=== PATIENT | female | born 1970 | race Caucasian/White ===

== ENCOUNTER → 2016-09-25 | Outpatient (CLI) | payer OTHER | LOC: FIMAGING 07:28 | PROVIDERS: ATTEND Obstetrics & Gynecology | DX: Z12.31 Encounter for screening mammogram for malignant neoplasm of breast (principal) | CPT/HCPCS: G0202 ==

== ENCOUNTER 2017-03-30 11:20 | Emergency (ER) | payer OTHER ==
[2017-03-30 11:38] VITALS: PULSE 61; RESP 16
--- NOTE | 2017-03-30 11:55 | EDPHY ---
H & P Stated Complaint: L thumb injury on Thursday Source: Patient Exam Limitations: No limitations - Personal History LMP (Females 10-55): 1-7 Days Ago Current Tetanus Diphtheria and Acellular Pertussis (TDAP): Yes - Medical/Surgical History Other PMH: healthy - Social History Smoking Status: Never smoked Time Seen by Provider: 03/30/17 11:54 HPI/ROS: HPI: This is a 46-year-old female who presents with Chief Complaint: L thumb injury on Thursday Location: Left thumb Quality: Injury Duration: Occurred Thursday Signs and Symptoms: No bleeding, no radiation, no numbness, no weakness, no tingling, no incontinence, no decreased range of motion, + swelling, + pain Timing: Sudden, worse with use Severity: Moderate Context: Patient is right-hand dominant and 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 She was skiing on Thursday, which he lost her balance and fell. She is not sure she had her pulling hand are not but when she hit the ground she felt immediate pain in her left thumb. She reports that she is almost at the end of her runs for the day so she went home. She reports that the pain has mildly been relieved but it is still there and worsened with flexion. She denies any paresthesias/weakness/skin color changes. Modifying Factors: None Comment: ROS: see HPI Constitutional: No fever, no chills, no weight loss Eyes: No blurred vision Respiratory: No shortness of breath, no cough Cardiovascular: No chest pain Gastrointestinal: No nausea, no vomiting no diarrhea Genitourinary: No dysuria Extremities: No myalgias Neurologic: No weakness, no numbness Skin: No rashes Hematologic: No bruising, no bleeding MEDICAL/SURGICAL/SOCIAL HISTORY: Medical history: Generally healthy. Does not take any regular medications. Surgical history: Denies Social history: Employed. CONSTITUTIONAL: Pleasant adult female, awake and alert, no obvious distress HEENT: Atraumatic and normocephalic, PERRL, EOMI. Tympanic membranes clear. Oropharynx clear, no exudate and moist pink mucosa. Airway patent. No lymphadenopathy. No meningismus. Cardiovascular: Normal S1/S2, regular rate, regular rhythm, without murmur rub or gallop. PULMONARY/CHEST: Symmetrical and nontender. Clear to auscultation bilaterally. Good air movement. No accessory muscle usage. ABDOMEN: Soft, nondistended, nontender, no rebound, no guarding, no peritoneal signs, no masses or organomegaly. No CVAT. 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 Patient is able to perform adduction and opposition. Mild tenderness noted over the ulnar border of the thumb MCP joint. Mild weakness of pinching noted. No scaphoid tenderness. Flexion and extension intact at the no deformities, no clubbing, no cyanosis or edema. NEUROLOGICAL: no focal neuro deficits. GCS 15. SKIN: Warm and dry, no erythema. no rash. Good capillary refill. (Amy Haas) Constitutional: Initial Vital Signs Temperature (C) 36.8 C 03/30/17 11:30 Heart Rate 61 03/30/17 11:30 Respiratory Rate 16 03/30/17 11:30 Blood Pressure 164/98 H 03/30/17 11:30 O2 Sat (%) 97 03/30/17 11:30 O2 Delivery Mode Room Air Allergies/Adverse Reactions: No Known Allergies Allergy (Unverified 03/30/17 11:35) Home Medications: Medication Instructions Recorded NK [No Known Home Meds] 03/30/17 Medical Decision Making Procedures: Procedure: Splint placement. A thumb spica splint was applied the Emergency Room emergency medical technician basic. After application of the splint I returned and re-examined the patient. The splint was adequately immobilizing the joint and distal to the splint the patient's circulation and sensation was intact. (Amy Haas) ED Course/Re-evaluation: Thumb x-ray ordered No signs of neurovascular compromise/tenting of skin/compartment syndrome/ extremities and joints examined above and below area of concern and are neurovascularly intact. X-ray my read shows possible small avulsion at the DIP joint Not completely convinced that her ulnar collateral ligament is ruptured but is definitely strain. Along with a small avulsion fracture seen. Placed in thumb spica splint with Hand follow-up, rice therapy, limited duty work note provided This patient was seen under the supervision of my secondary supervising physician. I evaluated care for this patient independently. (Amy Haas) Differential Diagnosis: Differential diagnosis includes but is not limited to phalanx fracture, tenosynovitis, jammed finger, tendon injury, nerve injury. (Amy Haas) Other Provider: The patient was evaluated and managed by the Physician Geospatial Analyst. My co- signature indicates that I have reviewed this chart and I agree with the findings and plan of care as documented. I am the secondary supervising physician. (Kait Serna) Departure - Departure Disposition: Home, Routine, Self-Care Clinical Impression: Skier's thumb, Avulsion fracture of left thumb Condition: Good Instructions: Skier's Thumb (ED) Additional Instructions: Wear the splint until seen by Hand surgery in 5-7 days. After 48 hours, you may remove the dressing; wash the site daily with mild soap and water; then pat dry. Take Tylenol 650 mg every 4 hours and/or Ibuprofen 600 mg every 8 hours with food as needed for pain. Apply ice for 30 minutes at a time; 2-3 times per day for the next 1-2 days. Follow up with Orthopedics/Hand surgery in 5-7 days as there is concern for UCL injury at which time they will evaluate and recommend with you if conservative management versus surgery is indicated. The x-rays obtained in the emergency department today demonstrate small avulsion fracture. Referrals: Dinesh Nair MD [Medical Doctor] - As per Instructions Stand Alone Forms: Work Limited Duty
[2017-03-30 13:10] VITALS: BP 148/97; TEMP 98.1; O2SAT 96
== END 2017-03-30 12:55 | disposition home or self-care (01) ==
DX: S62.522A Displaced fracture of distal phalanx of left thumb, initial encounter for closed fracture (principal); S63.642A Sprain of metacarpophalangeal joint of left thumb, initial encounter; V00.321A Fall from snow-skis, initial encounter; Y99.8 Other external cause status; Y93.23 Activity, snow (alpine) (downhill) skiing, snowboarding, sledding, tobogganing and snow tubing
CPT/HCPCS: L3807